=== PATIENT | female | born 1995 | race Caucasian/White ===

== ENCOUNTER 2019-02-13 06:56 | Inpatient (IN) ==
[2019-02-13 07:25] LABS: URINE SOURCE CLEAN CATCH
[2019-02-13 07:32] LABS: BILIRUBIN URINE NEGATIVE (NEGATIVE); BLOOD URINE 1+ (NEGATIVE); CLARITY SL. CLOUDY (CLEAR); COLOR YELLOW; GLUCOSE URINE NEGATIVE (NEGATIVE); KETONE URINE TRACE mg/dL (NEGATIVE); LEUKOCYTES URINE 2+ (NEGATIVE); NITRITE URINE NEGATIVE (NEGATIVE); PROTEIN URINE 1+(30 mg/dL) mg/dL (NEGATIVE); UROBILINOGEN URINE NORMAL
[2019-02-13] MEDS ORDERED: PEPCID IV PRN (07:42)
[2019-02-13] MEDS ORDERED: KEFZOL 1 GM/D5W 1 GM/50 ML IVPB IV PRN (07:42)
[2019-02-13] MEDS ORDERED: TYLENOL PO PRN (07:42)
[2019-02-13] MEDS ORDERED: PEPCID PO PRN (07:42)
[2019-02-13] MEDS ORDERED: PEPCID PO ONE (07:42)
[2019-02-13] MEDS ORDERED: REGLAN PO ONE (07:42)
[2019-02-13] MEDS ORDERED: ZOFRAN IV PRN (07:42)
[2019-02-13] MEDS ORDERED: STADOL IV PRN (07:42)
[2019-02-13] MEDS ORDERED: SODIUM CHLORIDE 0.9% INJ SCH (07:45)
[2019-02-13] MEDS ORDERED: PITOCIN 30 UNITS/NS 30 UNIT/500 ML IV.SOLN IV SCH ×2 (07:45→23:45)
[2019-02-13] MEDS ORDERED: NAROPIN 0.2% INJ ONE (08:15)
[2019-02-13 08:16] LABS: UR AMPHETAMINES QUAL NONE DETECTED (NONE DETECT); UR BARBITUATES QUAL NONE DETECTED (NONE DETECT); UR BENZODIAZEPIN QUAL NONE DETECTED (NONE DETECT); UR CANNABINOIDS QUAL NONE DETECTED (NONE DETECT); UR COCAINE QUAL NONE DETECTED (NONE DETECT); UR METHADONE QUAL NONE DETECTED (NONE DETECT); UR METHAMPHETAMINE QUAL NONE DETECTED (NONE DETECT); UR OPIATES QUAL NONE DETECTED (NONE DETECT); UR OXYCODONE QUAL NONE DETECTED (NONE DETECT); UR PCP QUAL NONE DETECTED (NONE DETECT); UR PROPOXYPHENE QUAL NONE DETECTED (NONE DETECT); UR TCA QUAL NONE DETECTED (NONE DETECT)
[2019-02-13] MEDS: LR 1,000 ML IV SCH ×3 (08:22→13:46)
[2019-02-13 08:49] LABS: BASO# 0.02 X1000 (0.0-0.2); BASO% 0.2 % (0.0-0.8); EOS# 0.04 X1000 (0.0-0.7); EOS% 0.5 % (0.0-10.0); HEMATOCRIT 32.5 % (37.0-47.0); HEMOGLOBIN 11.5 g/dL (12.0-16.0); IMM GRAN# 0.02 X1000 (0.0-0.04); IMM GRAN% 0.2 % (0.0-0.5); LYMPH# 1.44 X1000 (1.2-3.4); LYMPH% 17.8 % (20.5-51.1); MCH 31.3 PG (27-31); MCHC 35.4 g/dL (33-37); MCV 88.6 FL (81-99); MONO# 0.63 X1000 (0.11-0.59); MONO% 7.8 % (1.7-9.3); MPV 11.5 FL (7.4-10.4); NEUT# 5.93 X1000 (1.4-6.5); NEUT% 73.5 % (42.2-75.2); PLT 180 X1000 (130-400); RBC 3.67 XMIL (4.2-5.4); RDW 12.5 % (11.5-14.5); WBC 8.08 X1000 (4.8-10.8)
[2019-02-13] MEDS ORDERED: FENTANYL-BUPIV-NS 2 MCG-0.1% 200 ML EPIDURAL SCH (09:00)
[2019-02-13] MEDS ORDERED: XYLOCAINE-MPF 1% INJ ONE (10:21)
[2019-02-13] MEDS ORDERED: MINERAL OIL TOP PRN (10:22)
[2019-02-13] MEDS ORDERED: PEPCID IV ONE (15:14)
[2019-02-13] MEDS ORDERED: SODIUM CHLORIDE 0.9% INJ ONE (15:14)
[2019-02-13] MEDS ORDERED: REGLAN IV ONE (15:15)
--- NOTE | 2019-02-13 15:51 | OB/GYN PROGRESS NOTE ---
Progress Note OB - . OB Progress Note: Vital Signs - 24 hr 02/13/19 07:15 02/13/19 11:02 02/13/19 12:58 Temperature 96.4 F L 97.1 F L 97.7 F Pulse Rate 90 86 Respiratory Rate 18 16 Blood Pressure 118/65 106/58 O2 Sat by Pulse Oximetry 98 98 02/13/19 15:05 Temperature 96.9 F L Pulse Rate 68 Respiratory Rate 16 Blood Pressure 112/70 O2 Sat by Pulse Oximetry 98 Laboratory Results - last 24 hr 02/13/19 02/13/19 02/13/19 07:00 08:01 08:15 WBC RBC Hgb Hct MCV MCH MCHC RDW Std Deviation Plt Count MPV Immature Gran % (Auto) Neut % (Auto) Lymph % (Auto) [place] % (Auto) Eos % (Auto) Baso % (Auto) Immature Gran # (Auto) Neut # (Auto) Lymph # (Auto) [place] # (Auto) Eos # (Auto) Baso # (Auto) Urine Source CLEAN CATCH Urine Color YELLOW Urine Clarity SL. CLOUDY A Urine pH 5.0 Ur Specific [place] 1.020 Urine Protein 1+(30 mg/dL) A Urine Ketones TRACE Urine Blood 1+ A Urine Nitrite NEGATIVE Urine Bilirubin NEGATIVE Urine Urobilinogen NORMAL Urine WBC 2+ A Urine Glucose NEGATIVE Urine Opiates Screen NONE DETECTED Ur Oxycodone Screen NONE DETECTED Urine Methadone Screen NONE DETECTED U Propoxyphene Qual NONE DETECTED Ur Barbituates Screen NONE DETECTED Ur Tricyclics Screen NONE DETECTED Ur Phencyclidine Scrn NONE DETECTED Ur Amphetamines Screen NONE DETECTED U Methamphetamines Scrn NONE DETECTED U Benzodiazepines Scrn NONE DETECTED Urine Cocaine Screen NONE DETECTED U Cannabinoids Screen NONE DETECTED RPR NON-REACTIVE 02/13/19 08:15 WBC 8.08 RBC 3.67 L Hgb 11.5 L Hct 32.5 L MCV 88.6 MCH 31.3 H MCHC 35.4 RDW Std Deviation 12.5 Plt Count 180 MPV 11.5 H Immature Gran % (Auto) 0.2 Neut % (Auto) 73.5 Lymph % (Auto) 17.8 L [place] % (Auto) 7.8 Eos % (Auto) 0.5 Baso % (Auto) 0.2 Immature Gran # (Auto) 0.02 Neut # (Auto) 5.93 Lymph # (Auto) 1.44 [place] # (Auto) 0.63 H Eos # (Auto) 0.04 Baso # (Auto) 0.02 Urine Source Urine Color Urine Clarity Urine pH Ur Specific [place] Urine Protein Urine Ketones Urine Blood Urine Nitrite Urine Bilirubin Urine Urobilinogen Urine WBC Urine Glucose Urine Opiates Screen Ur Oxycodone Screen Urine Methadone Screen U Propoxyphene Qual Ur Barbituates Screen Ur Tricyclics Screen Ur Phencyclidine Scrn Ur Amphetamines Screen U Methamphetamines Scrn U Benzodiazepines Scrn Urine Cocaine Screen U Cannabinoids Screen RPR The pt is comfortable with her epidural. Pitocin is at 4 O: SVE /-1 FHTs 120s reactive TOCO: ctxs q 2-3 min P: Continue BRANDON
--- NOTE | 2019-02-13 19:55 | OB/GYN PROGRESS NOTE ---
Progress Note OB - . Patient Problems: Current Active Problems Problem Status Onset Post term over 40 weeks Acute Late care affecting Acute Tobacco use complicating Acute Type B blood, Rh negative Acute OB Progress Note: Vital Signs - 24 hr 02/13/19 07:15 02/13/19 11:02 02/13/19 12:58 Temperature 96.4 F L 97.1 F L 97.7 F Pulse Rate 90 86 Respiratory Rate 18 16 Blood Pressure 118/65 106/58 O2 Sat by Pulse Oximetry 98 98 02/13/19 15:05 02/13/19 17:46 Temperature 96.9 F L 98.4 F Pulse Rate 68 Respiratory Rate 16 Blood Pressure 112/70 O2 Sat by Pulse Oximetry 98 Laboratory Results - last 24 hr 02/13/19 02/13/19 02/13/19 07:00 08:01 08:15 WBC RBC Hgb Hct MCV MCH MCHC RDW Std Deviation Plt Count MPV Immature Gran % (Auto) Neut % (Auto) Lymph % (Auto) [place] % (Auto) Eos % (Auto) Baso % (Auto) Immature Gran # (Auto) Neut # (Auto) Lymph # (Auto) [place] # (Auto) Eos # (Auto) Baso # (Auto) Urine Source CLEAN CATCH Urine Color YELLOW Urine Clarity SL. CLOUDY A Urine pH 5.0 Ur Specific [place] 1.020 Urine Protein 1+(30 mg/dL) A Urine Ketones TRACE Urine Blood 1+ A Urine Nitrite NEGATIVE Urine Bilirubin NEGATIVE Urine Urobilinogen NORMAL Urine WBC 2+ A Urine Glucose NEGATIVE Urine Opiates Screen NONE DETECTED Ur Oxycodone Screen NONE DETECTED Urine Methadone Screen NONE DETECTED U Propoxyphene Qual NONE DETECTED Ur Barbituates Screen NONE DETECTED Ur Tricyclics Screen NONE DETECTED Ur Phencyclidine Scrn NONE DETECTED Ur Amphetamines Screen NONE DETECTED U Methamphetamines Scrn NONE DETECTED U Benzodiazepines Scrn NONE DETECTED Urine Cocaine Screen NONE DETECTED U Cannabinoids Screen NONE DETECTED RPR NON-REACTIVE 02/13/19 08:15 WBC 8.08 RBC 3.67 L Hgb 11.5 L Hct 32.5 L MCV 88.6 MCH 31.3 H MCHC 35.4 RDW Std Deviation 12.5 Plt Count 180 MPV 11.5 H Immature Gran % (Auto) 0.2 Neut % (Auto) 73.5 Lymph % (Auto) 17.8 L [place] % (Auto) 7.8 Eos % (Auto) 0.5 Baso % (Auto) 0.2 Immature Gran # (Auto) 0.02 Neut # (Auto) 5.93 Lymph # (Auto) 1.44 [place] # (Auto) 0.63 H Eos # (Auto) 0.04 Baso # (Auto) 0.02 Urine Source Urine Color Urine Clarity Urine pH Ur Specific [place] Urine Protein Urine Ketones Urine Blood Urine Nitrite Urine Bilirubin Urine Urobilinogen Urine WBC Urine Glucose Urine Opiates Screen Ur Oxycodone Screen Urine Methadone Screen U Propoxyphene Qual Ur Barbituates Screen Ur Tricyclics Screen Ur Phencyclidine Scrn Ur Amphetamines Screen U Methamphetamines Scrn U Benzodiazepines Scrn Urine Cocaine Screen U Cannabinoids Screen RPR 23 yo GBS-NEG, Rh-NEG WSF smoker due 02-07-2019 per 9.1 w sono and irregular menses previously requiring Metformin treatment, presenting in early labor this morning and progressing to 8/-1/clear AROM with NAYANA and Oxytocin augmentation now at 12 mIU/min. course was initiated at 22 weeks at [facility] with transfer to [facility] at 31 weeks, There is mention of MFM referral due to PCOS with no record of a second trimester sono available. PNC includes OGT 97 mg/mL, no recent GC, chlamydia screening. Recently she began Macrobid for treatment of suspected cystitis Tracing reveals regular 2-3 min UCs, category I tracing baseline 110 without decelerations. SVE 9/100/1-2 cm caput, appears SHANE. Pelvimetry appears adequate. A/P Active labor, 40.6 weeks EGA, with PCOS history, nl OGT, and third trimester sono surveillance not available Late registration History of tobacco use Rh-NEG Labor and delivery plan of care discussed and agreeable with patient, mother, and fiance.
[2019-02-13] MEDS ORDERED: METHERGINE ONE (23:02)
[2019-02-13] MEDS ORDERED: METHERGINE IM ONE (23:20)
[2019-02-13] MEDS ORDERED: PITOCIN 20 UNITS/NS 20 UNITS/1,000 ML IV.SOLN IV SCH (23:45)
[2019-02-13] MEDS ORDERED: M-M-R II VACCINE SUBQ ONE (23:57)
[2019-02-13] MEDS ORDERED: PITOCIN IM PRN (23:57)
[2019-02-13] MEDS ORDERED: ATARAX PO PRN (23:57)
[2019-02-13] MEDS ORDERED: CYTOTEC PO PRN (23:57)
[2019-02-13] MEDS ORDERED: BOOSTRIX VACCINE IM ONE (23:57)
[2019-02-13] MEDS ORDERED: XYLOCAINE-MPF 1% INJ PRN (23:57)
[2019-02-13] MEDS ORDERED: MINERAL OIL PO PRN (23:57)
[2019-02-13] MEDS ORDERED: PERI MEDS (DERMOPLAST/NUPERCAINAL/TUCKS) MISC PRN (23:57)
[2019-02-13] MEDS ORDERED: BENADRYL IV PRN (23:57)
[2019-02-13] MEDS ORDERED: BENADRYL PO PRN (23:57)
[2019-02-14] MEDS ORDERED: PITOCIN 20 UNITS/NS 20 UNITS/1,000 ML IV.SOLN ONE (00:01)
[2019-02-14] MEDS: METHERGINE PO SCH ×3 (05:24→18:17)
--- NOTE | 2019-02-14 08:51 | OB/GYN PROGRESS NOTE ---
Progress Note OB - . Patient Problems: Current Active Problems Problem Status Onset Type B blood, Rh negative Acute Tobacco use complicating Acute Late care affecting Acute Post term over 40 weeks Acute OB Progress Note: Vital Signs - 24 hr 02/13/19 11:02 02/13/19 12:58 02/13/19 15:05 Temperature 97.1 F L 97.7 F 96.9 F L Pulse Rate 86 68 Respiratory Rate 16 16 Blood Pressure 106/58 112/70 Blood Pressure [Left Arm] O2 Sat by Pulse Oximetry 98 98 02/13/19 17:46 02/13/19 20:34 02/13/19 23:55 Temperature 98.4 F 97.5 F L 97.5 F L Pulse Rate 111 H 106 H Respiratory Rate 18 20 Blood Pressure 133/74 122/62 Blood Pressure [Left Arm] 122/62 O2 Sat by Pulse Oximetry 100 02/14/19 00:00 02/14/19 00:05 02/14/19 00:15 Temperature 97.5 F L Pulse Rate 99 H 99 H 93 H Respiratory Rate 18 20 18 Blood Pressure 115/58 Blood Pressure [Left Arm] 115/58 114/57 O2 Sat by Pulse Oximetry 99 98 02/14/19 00:25 02/14/19 00:35 02/14/19 00:45 Temperature Pulse Rate 102 H 99 H 102 H Respiratory Rate 18 18 18 Blood Pressure Blood Pressure [Left Arm] 121/73 119/62 112/56 O2 Sat by Pulse Oximetry 100 100 100 02/14/19 00:55 02/14/19 04:00 02/14/19 07:00 Temperature 98.0 F 99.1 F Pulse Rate 101 H 78 97 H Respiratory Rate 18 18 20 Blood Pressure 118/60 115/69 119/57 Blood Pressure [Left Arm] 118/60 O2 Sat by Pulse Oximetry 100 100 Laboratory Results - last 24 hr 02/13/19 02/13/19 08:15 08:15 WBC 8.08 RBC 3.67 L Hgb 11.5 L Hct 32.5 L MCV 88.6 MCH 31.3 H MCHC 35.4 RDW Std Deviation 12.5 Plt Count 180 MPV 11.5 H Immature Gran % (Auto) 0.2 Neut % (Auto) 73.5 Lymph % (Auto) 17.8 L [place] % (Auto) 7.8 Eos % (Auto) 0.5 Baso % (Auto) 0.2 Immature Gran # (Auto) 0.02 Neut # (Auto) 5.93 Lymph # (Auto) 1.44 [place] # (Auto) 0.63 H Eos # (Auto) 0.04 Baso # (Auto) 0.02 RPR NON-REACTIVE PPD#1 s/p uncomplicated at 40 wks. Later PNC. Pt has no complaints. Cresencio reg diet. Ambulating. No urinary or bowel issues. Decreased lochia. Was taking Macrobid for a UTI before going into labor. Bottle feeding. Had a epis - no prob VSS AF Gen - Pt in no apparent distress, A&O x 3 ABD - soft, NT, ND, FF Extreme - No C/C/E A/P - PPD#1 s/p Rh Neg - Rhogam eval in progress (baby is Rh neg) UTI - will continue macrobid Epis - care instructions given Cont PP care
[2019-02-14 10:34] LABS: HEMATOCRIT 31.3 % (37.0-47.0); HEMOGLOBIN 10.9 g/dL (12.0-16.0); RBC 3.55 XMIL (4.2-5.4)
[2019-02-14 10:35] LABS: BASO# 0.01 X1000 (0.0-0.2); BASO% 0.1 % (0.0-0.8); IMM GRAN# 0.02 X1000 (0.0-0.04); IMM GRAN% 0.1 % (0.0-0.5); LYMPH# 1.32 X1000 (1.2-3.4); LYMPH% 8.5 % (20.5-51.1); MCH 30.7 PG (27-31); MCHC 34.8 g/dL (33-37); MCV 88.2 FL (81-99); MONO# 0.77 X1000 (0.11-0.59); MONO% 4.9 % (1.7-9.3); NEUT# 13.48 X1000 (1.4-6.5); NEUT% 86.4 % (42.2-75.2); PLT 166 X1000 (130-400); RDW 12.3 % (11.5-14.5)
[2019-02-14 10:42] LABS: ANISOCYTOSIS 1+; LYMPHS 10 % (21-51); MONO 6 % (1-9); SEGS 84 % (42-75)
[2019-02-14] MEDS: MOTRIN PO PRN ×2 (11:19→22:05)
[2019-02-14] MEDS ORDERED: NORCO-5 PO PRN ×2 (17:43→18:51)
[2019-02-14] MEDS: PERICOLACE PO SCH (22:05)
--- NOTE | 2019-02-15 08:46 | OB/GYN PROGRESS NOTE ---
Progress Note OB - . Patient Problems: Current Active Problems Problem Status Onset Type B blood, Rh negative Acute Tobacco use complicating Acute Late care affecting Acute Post term over 40 weeks Acute OB Progress Note: Vital Signs - 24 hr 02/14/19 12:30 02/14/19 17:30 02/14/19 21:57 Temperature 96.9 F L 97.8 F 96.7 F L Pulse Rate 79 102 H 83 Respiratory Rate 20 20 18 Blood Pressure 89/54 114/56 123/57 O2 Sat by Pulse Oximetry 100 100 99 02/15/19 00:21 02/15/19 08:27 Temperature 97.6 F 95.6 F L Pulse Rate 77 64 Respiratory Rate 16 16 Blood Pressure 94/45 91/55 O2 Sat by Pulse Oximetry 98 99 Laboratory Results - last 24 hr 02/14/19 02/14/19 08:50 08:50 WBC 15.60 H RBC 3.55 L Hgb 10.9 L Hct 31.3 L MCV 88.2 MCH 30.7 MCHC 34.8 RDW Std Deviation 12.3 Plt Count 166 MPV 11.0 H Immature Gran % (Auto) 0.1 Neut % (Auto) 86.4 H Lymph % (Auto) 8.5 L [place] % (Auto) 4.9 Eos % (Auto) 0.0 Baso % (Auto) 0.1 Immature Gran # (Auto) 0.02 Neut # (Auto) 13.48 H Lymph # (Auto) 1.32 [place] # (Auto) 0.77 H Eos # (Auto) 0.00 Baso # (Auto) 0.01 Segmented Neutrophils 84 H Lymphocytes 10 L Monocytes 6 Anisocytosis 1+ ABO/Rh B NEGATIVE Screen NEGATIVE RhIG Candidate? YES 23 yo Rh-NEG G2 now [id number] WSF PPD #1-1/2 feeling well with NSAID analgesia. Her son is doing well with bottle-feeding. PP ROS is negative. Full consent obtained for circumcision EXAM VSSAF HEENT Nl Chest Nl resp effort CVS Nl RRR edema trace Abd soft Fundus firm, nontender, U-2 Ext nontender calves A/P as above Macrobid resumed for antepartum UTI RH-NEG, Rh-NEG circumcision today Anticipate discharge tomorrow
[2019-02-15] MEDS: PERICOLACE PO SCH (20:03)
[2019-02-15] MEDS: MOTRIN PO PRN (20:04)
[2019-02-16 08:16] VITALS: BP 107/65
--- NOTE | 2019-02-16 08:58 | OB/GYN PROGRESS NOTE ---
Progress Note OB - . Patient Problems: Current Active Problems Problem Status Onset Type B blood, Rh negative Acute Tobacco use complicating Acute Late care affecting Acute Post term over 40 weeks Acute OB Progress Note: Vital Signs - 24 hr 02/15/19 15:49 02/15/19 23:11 02/16/19 08:15 Temperature 97.9 F 96.9 F L 96.6 F L Pulse Rate 76 94 H 90 Respiratory Rate 16 18 16 Blood Pressure 81/45 139/76 107/65 O2 Sat by Pulse Oximetry 98 99 100 The pt is doing well. Pain controlled minimal lochia breast and bottle feeding desires Depo Provera for control O: Gen: AAOx3 NAD CV: RRR no g/m/r Lungs: CTAB no w/r/r Abd: +BS soft NT/ND Ext: no c/c/e Perinuem: intact A: PPD#2 s/p Rh neg baby is also RH neg so Rhogam not needed P: D/C home Depo prior to discharge
[2019-02-16] MEDS ORDERED: DEPO-PROVERA IM ONE (09:23)
--- NOTE | 2019-02-16 11:08 | OPERATIVE NOTE ---
PROCEDURE DATE: 02/13/2019 PREOPERATIVE DIAGNOSES: 1. A 40-week 6-day with obstetric complications. 2. Late registration. 3. Blood type B negative. 4. Tobacco use. 5. History of polycystic ovary disease and metformin treatment. POSTOPERATIVE DIAGNOSES: 1. A 40-week 6-day with obstetric complications. 2. Late registration. 3. Blood type B negative. 4. Tobacco use. 5. History of polycystic ovary disease and metformin treatment. 6. A viable male infant. PROCEDURES PERFORMED: 1. Spontaneous vaginal delivery. 2. Repair of outlet vaginal tears. 3. Pitocin augmentation and artificial rupture of membranes. SURGEON: Dimitris Eli M.D. ANESTHESIA: Continuous lumbar epidural. ESTIMATED BLOOD LOSS: 400 mL. COMPLICATIONS: None. PROPHYLAXIS: None. FINDINGS: Viable 8-pound 10-ounce infant from JACINTO position over intact perineum with mild shoulder dystocia, responding to Ameena maneuver and gentle traction, as well as mild uterine atony was noted, responding to bimanual massage and Methergine 0.2 mg intramuscular injection. Cervix and upper vagina were intact. A right labial tear was not bleeding and did not require repair. Outlet bilateral tears were noted, requiring reapproximation using running 3-0 Vicryl. Good approximation and hemostasis was observed. DESCRIPTION OF PROCEDURE: Nell proceeded to complete dilation after presenting with onset of contractions the evening of 02/12/2019. She underwent augmentation, continuous lumbar epidural placement, and artificial rupture of membranes this morning. She proceeded to complete dilation at approximately 2200 hours, with a reassuring heart rate tracing throughout. With of the head, injection of local lidocaine was obtained. She reached complete dilation at about 2200 hours, and was able to bring the vertex to despite perineal discomfort managed to some degree with infiltration of local lidocaine. Following head delivery, Ameena maneuver was used to release the anterior shoulder. The posterior shoulder was delivered with gentle upward traction, and with continued pushing efforts, the remainder of the child was delivered and placed on the maternal abdomen for initial drying and assessment. Cord was doubly clamped and divided, and the child handed to nursery personnel for initial assessment and Apgars. Late meconium after delivery of the shoulders was noticed, and suctioning of the was obtained. Apgars were assigned at 6 and 9. Infusion of Pitocin was begun at 500 mL/h. Placenta delivered at 2321 hours, intact and unremarkable. Bimanual massage revealed some boggy uterine tone, and that responded to further massage and intramuscular methargen. The cervix and upper vagina were examined. Vaginal packing was placed. Outlet vaginal tears were infiltrated with 1% lidocaine, and reapproximated with running unlocked 3-0 Vicryl. Packing was removed, and bimanual massage repeated with expulsion of a retained clot. Excellent uterine tone was noted. Drapes were removed, and the patient was cleansed and returned to the sitting position for initial bonding with her . Sponge, needle, and instrument counts were correct. Cord gas was obtained with cord pH 7.27, base excess -10.2, PO2 of 32.
== END 2019-02-16 11:50 | disposition home or self-care (01) | DRG 805 ==
LOC: P.NBC 06:56 → P.LD 06:57
PROVIDERS: ADMIT Obstetrics & Gynecology; ATTEND Obstetrics & Gynecology
CPT/HCPCS: 59025; 80104; 80301; 80305; 81003; 85025; 85461; 86592; 86900; 86901; 90715; A9270; G0431; G0434; G0477; J0150; J1050; J1055; J2210; J2405; J2590; J2795; J7120; S0028